=== PATIENT | female | born 1945 | race Caucasian/White ===

== ENCOUNTER 2024-09-13 14:14 | Inpatient (IN) | payer OTHER ==
[2024-09-13] VITALS (35 sets, daily range): BP systolic 110–167; BP diastolic 52–103; PULSE 55–131; RESP 10–54; TEMP 98.3–98.7; O2SAT 88–96
[~2024-09-13] VITALS: Ht 160 cm; Wt 65.8 kg
[2024-09-13] MEDS ORDERED: LACTATED RINGERS 1,000 ML ONE (14:26)
[2024-09-13] MEDS ORDERED: CARDIZEM IV ONE (14:36)
[2024-09-13] MEDS: CARDIZEM IV ONE ×2 (14:38→15:23)
[2024-09-13] MEDS ORDERED: SOLU-MEDROL ONE (14:41)
[2024-09-13] MEDS: LACTATED RINGERS 1,000 ML IV SCH (14:41)
[2024-09-13] MEDS: SOLU-MEDROL IV STA (14:44)
[2024-09-13 14:48] LABS: BASOPHIL % 0.2 % (0.1-1.2); EOSINOPHIL # 0.1 10^3/uL (0.0-0.2); EOSINOPHIL % 1.1 % (0.0-5.0); HEMATOCRIT(ML) 44.9 % (36.0-46.0); HEMOGLOBIN 14.6 g/dL (12.0-15.0); LYMPHOCYTES # 2.07 10^3/uL1 (1.0-4.8); LYMPHOCYTES % 16.5 % (24.0-44.0); MEAN CORP HGB 29.2 pg (26-34); MEAN CORP HGB CONCENTRATION 32.5 g/dL (33-36.5); MEAN CORP VOLUME 89.8 fL (78-100); MONOCYTES # 0.5 10^3/uL (0.3-0.8); MONOCYTES % 4.2 % (5.0-12.0); NEUTROPHIL # 9.7 10^3/uL (1.8-7.7); NEUTROPHILS % 77.1 % (41.0-85.0); PLATELET COUNT 301 10^3/uL (150-400); RED CELL DISTRIBUTION WIDTH 13.7 % (11.5-14.5); WHITE BLOOD CELL 12.5 10^3/uL (4.5-11.0)
[2024-09-13 15:04] LABS: +ADD MANUAL DIFF(NO CHRG) NO
[2024-09-13 15:05] LABS: ALBUMIN(ML) 3.7 g/dL (3.4-5.0); ALBUMIN/GLOBULIN RATIO 0.925; ANION GAP 13.8; BUN/CREATININE RATIO 19.54 (10.0-20.0); CALCIUM 8.8 mg/dL (8.4-10.5); CARBON DIOXIDE 21.7 mmol/L (20.0-32); CREATININE SERUM 0.87 mg/dL (0.59-1.40); EST GFR, NON-AA 63.1 (>/=60); POTASSIUM 3.5 mmol/L (3.6-5.2)
[2024-09-13] MEDS ORDERED: NS 100ML 100 ML IV ONE ×2 (15:11→22:19)
[2024-09-13] MEDS ORDERED: CARDIZEM ONE ×2 (15:11→22:19)
[2024-09-13] MEDS: CARDIZEM IV STA (15:16)
[2024-09-13 15:18] LABS: BILIRUBIN,URINE NEGATIVE (NEGATIVE); LEUKOCYTE ESTERASE ,URINE NEGATIVE (NEGATIVE); NITRATE,URINE NEGATIVE (NEGATIVE); UROBILINOGEN,URINE 0.2 E.U./dL (0.2)
[2024-09-13 15:19] LABS: APPEARANCE,URINE CLEAR; UA COLOR YELLOW
[2024-09-13] MEDS ORDERED: SUBLIMAZE 100MCG/2ML ONE (15:23)
[2024-09-13] MEDS ORDERED: MORPHINE SULFATE ONE (15:26)
[2024-09-13] MEDS: MORPHINE SULFATE IV STA (15:31)
[2024-09-13] MEDS ORDERED: LANOXIN ONE (16:12)
[2024-09-13] MEDS: LANOXIN IV SCH (16:19)
[2024-09-13] MEDS ORDERED: THYR60TA PO (17:12)
[2024-09-13] MEDS ORDERED: ZOLP10TA PO (17:12)
[2024-09-13] MEDS ORDERED: VALIUM PO PRN (18:30)
[2024-09-13] MEDS ORDERED: ZOFRAN IV PRN (18:30)
[2024-09-13] MEDS ORDERED: NICOTINE 21 MGPATCH TD PRN (18:30)
[2024-09-13] MEDS ORDERED: DEXTROSE 50%-WATER SYRINGE IV PRN (18:30)
[2024-09-13] MEDS ORDERED: APRESOLINE IV PRN (18:30)
[2024-09-13] MEDS ORDERED: XOPENEX IH PRN (18:30)
[2024-09-13] MEDS ORDERED: NITROSTAT SL PRN (18:30)
[2024-09-13] MEDS: CARDIZEM 125 MG in NS 100ML 100 ML IV SCH (19:53)
[2024-09-13] MEDS ORDERED: NS 250ML 250 ML ONE (19:57)
[2024-09-13] MEDS ORDERED: CARDENE-NACL 20 MG/200 ML SOLN 200 ML IV SCH (20:00)
[2024-09-13] MEDS: ULTRAM PO PRN (20:01)
[2024-09-13] MEDS: AMBIEN PO SCH (20:01)
[2024-09-13] MEDS: KCL 20 MEQ/100 ML SOL 100 ML IV ONE (20:04)
[2024-09-13] MEDS: LIDODERM TP SCH (22:31)
[2024-09-14] VITALS (91 sets, daily range): BP systolic 100–168; BP diastolic 35–100; PULSE 50–77; RESP 12–53; TEMP 97.8–98.4; O2SAT 91–100
[2024-09-14 05:19] LABS: BASOPHIL % 0.1 % (0.1-1.2); HEMATOCRIT(ML) 39.5 % (36.0-46.0); HEMOGLOBIN 13.1 g/dL (12.0-15.0); LYMPHOCYTES # 1.12 10^3/uL1 (1.0-4.8); LYMPHOCYTES % 14.4 % (24.0-44.0); MEAN CORP HGB 29.6 pg (26-34); MEAN CORP HGB CONCENTRATION 33.2 g/dL (33-36.5); MEAN CORP VOLUME 89.4 fL (78-100); MONOCYTES # 0.2 10^3/uL (0.3-0.8); MONOCYTES % 1.9 % (5.0-12.0); NEUTROPHIL # 6.5 10^3/uL (1.8-7.7); NEUTROPHILS % 83.3 % (41.0-85.0); PLATELET COUNT 234 10^3/uL (150-400); RED BLOOD CELL 4.42 10^6/uL (4.00-5.20); RED CELL DISTRIBUTION WIDTH 13.5 % (11.5-14.5); WHITE BLOOD CELL 7.8 10^3/uL (4.5-11.0)
[2024-09-14 05:20] LABS: +ADD MANUAL DIFF(NO CHRG) NO
[2024-09-14 05:44] LABS: ALBUMIN(ML) 3.2 g/dL (3.4-5.0); ALBUMIN/GLOBULIN RATIO 0.864; BUN/CREATININE RATIO 21.33 (10.0-20.0); CALCIUM 8.7 mg/dL (8.4-10.5); CREATININE SERUM 0.75 mg/dL (0.59-1.40); EST GFR, NON-AA 74.9 (>/=60); LDL/HDL RATIO 2.6
[2024-09-14] MEDS: HEPARIN SQ SCH ×2 (06:20→20:43)
[2024-09-14 06:25] LABS: PROTHROMBIN PROTIME 10.4 SEC (9.3-11.6)
[2024-09-14] MEDS ORDERED: ARMOUR THYROID PO SCH (09:00)
[2024-09-14] MEDS: TYLENOL PO SCH (13:10)
[2024-09-14] MEDS: ARMOUR THYROID PO SCH (13:10)
[2024-09-14] MEDS: MORPHINE SULFATE IV PRN (14:47)
[2024-09-14] MEDS: NEURONTIN PO SCH (14:47)
[2024-09-14] MEDS: ROBAXIN PO PRN (17:07)
[2024-09-15] VITALS (39 sets, daily range): BP systolic 106–178; BP diastolic 48–89; PULSE 48–75; RESP 11–39; TEMP 97.3–98.5; O2SAT 91–99
[2024-09-15 05:01] LABS: HEMATOCRIT(ML) 37.2 % (36.0-46.0); HEMOGLOBIN 12.3 g/dL (12.0-15.0); MEAN CORP HGB 30.1 pg (26-34); MEAN CORP HGB CONCENTRATION 33.1 g/dL (33-36.5); RED BLOOD CELL 4.09 10^6/uL (4.00-5.20); RED CELL DISTRIBUTION WIDTH 13.9 % (11.5-14.5); WHITE BLOOD CELL 10.7 10^3/uL (4.5-11.0)
[2024-09-15 05:16] LABS: ANION GAP 11.7; BUN/CREATININE RATIO 22.78 (10.0-20.0); CALCIUM 8.5 mg/dL (8.4-10.5); CREATININE SERUM 0.79 mg/dL (0.59-1.40); EST GFR, NON-AA 70.6 (>/=60); POTASSIUM 3.7 mmol/L (3.6-5.2)
[2024-09-15] MEDS: ULTRAM PO PRN ×2 (08:33→12:58)
[2024-09-15] MEDS ORDERED: ARMOUR THYROID PO SCH (09:00)
[2024-09-15] MEDS ORDERED: ROBAXIN ONE (12:54)
[2024-09-15] MEDS ORDERED: ULTRAM ONE (12:55)
[2024-09-15] MEDS ORDERED: HEPARIN ONE (14:46)
[2024-09-15] MEDS ORDERED: NEURONTIN ONE (15:30)
[2024-09-15] MEDS ORDERED: MORPHINE SULFATE ONE (15:31)
[2024-09-16] VITALS (7 sets, daily range): BP systolic 121–160; BP diastolic 71–94; PULSE 50–64; RESP 12–18; TEMP 97.1–97.6; O2SAT 93–98
[2024-09-16 08:36] LABS: ANION GAP 10.5; BUN/CREATININE RATIO 17.1 (10.0-20.0); CARBON DIOXIDE 26.3 mmol/L (20.0-32); CREATININE SERUM 0.76 mg/dL (0.59-1.40); EST GFR, NON-AA 73.8 (>/=60); POTASSIUM 3.8 mmol/L (3.6-5.2)
[2024-09-16] MEDS ORDERED: GABA100C7 PO (16:09)
[2024-09-16] MEDS ORDERED: TRAM50TA PO (16:09)
== END 2024-09-16 18:23 | disposition home or self-care (01) | DRG 184 ==
LOC: ER 14:14 → ICU 16:13 → OBS 09-15 12:30 → MS 09-16 08:02
PROVIDERS: ADMIT Student in an Organized Health Care Education/Training Program; ATTEND Internal Medicine
DX: S22.42XA Multiple fractures of ribs, left side, initial encounter for closed fracture (principal); S22.22XA Fracture of body of sternum, initial encounter for closed fracture; S80.212A Abrasion, left knee, initial encounter; E03.9 Hypothyroidism, unspecified; G47.00 Insomnia, unspecified; I48.91 Unspecified atrial fibrillation; K57.30 Diverticulosis of large intestine without perforation or abscess without bleeding; K76.89 Other specified diseases of liver; Z88.2 Allergy status to sulfonamides; Z90.710 Acquired absence of both cervix and uterus; V43.62XA Car passenger injured in collision with other type car in traffic accident, initial encounter; Y93.89 Activity, other specified; Y92.488 Other paved roadways as the place of occurrence of the external cause; Y99.8 Other external cause status
CPT/HCPCS: 36415; 70450; 71045; 71260; 72125; 72170; 74177; 80048; 80053; 80061; 81003; 82553; 83735; 84436; 84443; 84484; 85025; 85027; 85610; 85730; 86900; 93005; 93306; 96361; 96374; 96375; 96376; 99291; 99292; G0378; J1160; J1644; J2270; J2919; J3010; J3480; J3490; J7050; J7120; J8499; Q9965; 73110-RT; 73610-RT; 73630-RT; J2930

== ENCOUNTER 2024-09-13 14:14 | Emergency (ER) | payer MEDICARE ==
[2024-09-13] MEDS ORDERED: [UNRECOGNIZED DRUG - CODE] PO (17:12)
[2024-09-13] MEDS ORDERED: THYR60TA PO (17:12)
== END 2024-09-13 16:33 | disposition admitted as inpatient to this hospital (09) ==
LOC: ER 14:14
DX: S22.49XA Multiple fractures of ribs, unspecified side, initial encounter for closed fracture (principal); X58.XXXA Exposure to other specified factors, initial encounter; Y93.9 Activity, unspecified; Y92.89 Other specified places as the place of occurrence of the external cause; Y99.8 Other external cause status
CPT/HCPCS: 99291; 70450; 96374; 96361; 96375; 71045; 99292; 72170; 71260; 72125; 73610; 73630; 81003; 80053; 85025; 36415; 84484; 86900; 93005; 96376; J2270; J3490 ×2; J7120; J1160; J3010; Q9965